=== PATIENT | male | born 1980 | race African-American/Black ===

== ENCOUNTER 2020-02-19 13:50 | Emergency (ER) | payer SELFPAY ==
[~2020-02-19] VITALS: Ht 175.3 cm; Wt 75.0 kg
[2020-02-19] MEDS ORDERED: SODIUM CHLORIDE 0.9% 1,000 ML IV ONE (14:34)
[2020-02-19] MEDS ORDERED: ONDANSETRON HCL 4MG/2ML INJ IV STA (14:34)
[2020-02-19] MEDS ORDERED: DEXTROSE 50% WATER 50ML SYRINGE IV ONE ×2 (14:45→18:00)
[2020-02-19 15:22] LABS: BASOPHILS % 0.7 % (0.0-2.0); EOSINOPHILS % 3.3 % (0.0-5.0); HEMATOCRIT. 37.3 % (42.0-52.0); HEMOGLOBIN. 12.8 g/dL (14.0-18.0); MEAN CORPUSCULAR HEMOGLOBIN 34.9 pg (28.0-32.0); MEAN PLATELET VOLUME 7.4 fl (7.4-10.4); MONOCYTES % 7.1 % (2.0-8.0); NEUTROPHILS % 67.9 % (40.0-76.0); PLATELET 307 x1000/uL (130-400); RED BLOOD CELL COUNT 3.66 mill/uL (4.7-6.1); RED CELL DISTRIBUTION WIDTH 15.8 % (11.6-14.6)
[2020-02-19 15:27] LABS: CHLORIDE 106 mEq/L (98-107); PROTHROMBIN TIME 10.5 sec (9.6-11.0)
[2020-02-19 15:32] LABS: ETHANOL BLOOD 75 mg/dL
[2020-02-19 15:37] LABS: CREATINE KINASE 563 IU/L (39-308)
[2020-02-19] MEDS ORDERED: DEXT 5%/0.9% NACL 1,000 ML IV ONE (17:15)
[2020-02-19 19:00] VITALS: BP 118/60
[2020-02-19 20:02] LABS: CHLORIDE 107 mEq/L (98-107)
[2020-02-19] MEDS ORDERED: DEXT 5%/0.45% NACL 1000ML 1,000 ML IV SCH (20:11)
[2020-02-19] MEDS ORDERED: ENOXAPARIN 40MG/0.4ML SYR SUBCUT SCH (20:15)
[2020-02-19] MEDS ORDERED: DIPHENHYDRAMINE 50MG/ML VIAL IV PRN (20:15)
[2020-02-19] MEDS ORDERED: CLONIDINE 0.1MG TABLET PO PRN (20:15)
[2020-02-19] MEDS ORDERED: ONDANSETRON HCL 4MG/2ML INJ IV PRN (20:15)
[2020-02-19] MEDS ORDERED: IPRATROPIUM/ALBUTEROL 0.5-3(2.5)MG/3ML NEB NEB PRN (20:15)
[2020-02-19] MEDS ORDERED: NA PHOS,M-B/NA PHOS,DI-BA ENEMA 118ML PR PRN (20:15)
[2020-02-19] MEDS ORDERED: DOCUSATE SODIUM 100MG CAPSULE PO PRN (20:15)
[2020-02-19] MEDS ORDERED: LORAZEPAM 2MG/ML CPJ IV PRN (20:15)
[2020-02-19] MEDS ORDERED: MORPHINE SULFATE 2 MG/ML CPJ (NOT FOR IM USE) IV PRN (20:15)
[2020-02-19] MEDS ORDERED: HYDROCODONE/ACETAMINOPHEN 10/325MG TABLET PO PRN (20:15)
[2020-02-19] MEDS ORDERED: GUAIFENESIN 200MG/10ML SUGAR FREE UDC PO PRN (20:15)
[2020-02-19] MEDS ORDERED: MAGNESIUM/ALUMINUM HYDROXIDE/SIMETHICONE 30ML UDC PO PRN (20:15)
[2020-02-19] MEDS ORDERED: ACETAMINOPHEN 325MG TABLET PO PRN (20:15)
[2020-02-19] MEDS ORDERED: HYDRALAZINE 20MG/ML VIAL IV PRN (20:15)
[2020-02-19] MEDS ORDERED: DEXTROSE 50% WATER 50ML SYRINGE IV PRN (20:15)
[2020-02-19] MEDS ORDERED: SODIUM CHLORIDE 0.9% INJ 3ML FLUSH IVF SCH (22:00)
[2020-02-20] MEDS ORDERED: BLOOD SUGAR DIAGNOSTIC STRIP TEST SCH
== END 2020-02-19 20:37 | disposition left against medical advice (07) ==
LOC: ER 14:06 → EDBEDREQSVC 18:01 → EDBEDREQ 18:01 → EDBEDREQTM 18:01 → ENRESERV 19:41 → CANRESERV 19:41 → ER 20:37 → CANBEDREQ 20:44
DX: E11.649 Type 2 diabetes mellitus with hypoglycemia without coma (principal); G93.40 Encephalopathy, unspecified; R41.82 Altered mental status, unspecified; Z79.4 Long term (current) use of insulin
CPT/HCPCS: 36415; 70450; 71045; 80048; 80053; 80320; 82140; 82550; 82962; 83605; 83690; 83880; 84484; 85025; 85610; 93005; 96365; 96375; 99285; J2405; J7030; G0480